=== PATIENT | male | born 1960 | race Caucasian/White ===

== ENCOUNTER 2023-10-16 13:29 | Day surgery (SDC) | payer OTHER ==
[2023-10-16] MEDS ORDERED: Depo-Medrol 40 MG/ML IM ONE (13:30)
[2023-10-16] MEDS ORDERED: LIDOCAINE HCL 2% 100 MG/5 ML IJ ONE (13:30)
[2023-10-16] MEDS ORDERED: Lactated Ringers 1,000 ML IV ONE (15:58)
[2023-10-16] MEDS ORDERED: DIPRIVAN 200 MG/20 ML IV ONE (16:00)
--- NOTE | 2023-10-16 16:31 | XRAY ---
Indication: Bilateral L4-S1 MBB. Intraoperative fluoroscopy provided for 12 seconds. Single digital spot image submitted for interpretation demonstrates posterior needle tips projecting over the expected left and right L4-S1 nerve roots. Correlate with intraoperative findings/report.
--- NOTE | 2023-10-16 16:39 | XRAY ---
12 seconds of fluoroscopy was used in surgery for a bilateral L4-S1 MBB.
== END 2023-10-16 16:30 | disposition home or self-care (01) ==
LOC: SDC-PAIN 13:29
PROVIDERS: ATTEND Psychiatry & Neurology Pain Medicine
DX: M47.816 Spondylosis without myelopathy or radiculopathy, lumbar region (principal)
CPT/HCPCS: 64493; 64494; 72020; 77002; J1030; J2704

== ENCOUNTER 2023-11-13 11:13 | Day surgery (SDC) | payer OTHER ==
[2023-11-13] MEDS ORDERED: Depo-Medrol 40 MG/ML IM ONE (11:14)
[2023-11-13] MEDS ORDERED: BUPIVACAINE 0.5% VIAL IJ ONE (11:14)
[2023-11-13] MEDS ORDERED: Lactated Ringers 1,000 ML IV ONE (12:45)
[2023-11-13] MEDS ORDERED: DIPRIVAN 200 MG/20 ML IV ONE (12:55)
--- NOTE | 2023-11-13 14:40 | XRAY ---
Indication: Bilateral L4-S1 MBB. Intraoperative fluoroscopy provided for 11 seconds. Single digital spot images submitted for interpretation demonstrates posterior needle tips projecting over the expected left and right L4-S1 nerve roots. Correlate with intraoperative findings/report.
--- NOTE | 2023-11-13 15:10 | XRAY ---
11 seconds of fluoroscopy was used in surgery for a bilateral L4-S1 MBB.
== END 2023-11-13 13:28 | disposition home or self-care (01) ==
LOC: SDC-PAIN 11:13
PROVIDERS: ATTEND Psychiatry & Neurology Pain Medicine
DX: M47.816 Spondylosis without myelopathy or radiculopathy, lumbar region (principal)
CPT/HCPCS: 64493; 64494; 72020; 77002; J1030; J2704

== ENCOUNTER 2023-12-18 14:16 | Day surgery (SDC) | payer OTHER ==
[2023-12-18] MEDS ORDERED: Depo-Medrol 40 MG/ML IM ONE (14:17)
[2023-12-18] MEDS ORDERED: BUPIVACAINE 0.5% VIAL IJ ONE (14:17)
[2023-12-18] MEDS ORDERED: LIDOCAINE HCL 1% 50 MG/5 ML VL PF IJ ONE (14:17)
[2023-12-18] MEDS ORDERED: DIPRIVAN 200 MG/20 ML IV ONE (16:51)
[2023-12-18] MEDS ORDERED: Lactated Ringers 1,000 ML IV ONE (17:25)
--- NOTE | 2023-12-18 21:00 | XRAY ---
Indication: Right L4-S1 RFA Intraoperative fluoroscopy provided for 17 seconds. 4 digital spot image submitted for interpretation demonstrates posterior needle tips projecting over the expected right L4-S1 nerve roots. Correlate with intraoperative findings/report
--- NOTE | 2023-12-19 08:55 | XRAY ---
17 seconds of fluoroscopy was used in surgery for a right L4-S1 RFA.
== END 2023-12-18 17:18 | disposition home or self-care (01) ==
LOC: SDC-PAIN 14:16
PROVIDERS: ATTEND Psychiatry & Neurology Pain Medicine
DX: M47.816 Spondylosis without myelopathy or radiculopathy, lumbar region (principal)
CPT/HCPCS: 64635; 64636; 72100; 77002; J1010; J2001; J2704

== ENCOUNTER 2023-12-25 14:11 | Day surgery (SDC) | payer OTHER ==
[2023-12-25] MEDS ORDERED: XYLOCAINE-MPF 1% 5ML SDV IJ ONE (14:12)
[2023-12-25] MEDS ORDERED: BUPIVACAINE 0.5% VIAL IJ ONE (14:12)
[2023-12-25] MEDS ORDERED: Depo-Medrol 40 MG/ML IM ONE (14:12)
[2023-12-25] MEDS ORDERED: DIPRIVAN 200 MG/20 ML IV ONE ×2 (15:49→15:53)
[2023-12-25] MEDS ORDERED: Lactated Ringers 1,000 ML IV ONE (15:53)
--- NOTE | 2023-12-25 17:08 | XRAY ---
Indication: Left L4-S1 RFA. Intraoperative fluoroscopy provided for 16 seconds. 4 digital spot image submitted for interpretation demonstrates posterior needle tips projecting over left L4-S1 nerve roots. Correlate with intraoperative findings/report.
--- NOTE | 2023-12-26 14:46 | XRAY ---
16 seconds of fluoroscopy was used in surgery for a left L4-S1 RFA.
== END 2023-12-25 16:18 | disposition home or self-care (01) ==
LOC: SDC-PAIN 14:11
PROVIDERS: ATTEND Psychiatry & Neurology Pain Medicine
DX: M47.816 Spondylosis without myelopathy or radiculopathy, lumbar region (principal)
CPT/HCPCS: 64635; 64636; 72100; 77002; J1010; J2704